=== PATIENT | female | born 1990 | race Two or more races ===

== ENCOUNTER 2018-05-16 02:50 | Emergency (ER) | payer OTHER ==
[~2018-05-16] VITALS: Ht 162.6 cm; Wt 111.1 kg
[2018-05-16] MEDS ORDERED: HYZAAR 50-12.51 EACH (03:11)
[2018-05-16] MEDS ORDERED: PEPCID40 MG PO (06:07)
[2018-05-16] MEDS ORDERED: PROTONIX40 MG PO (06:07)
== END 2018-05-16 06:17 | disposition home or self-care (01) ==
LOC: ER 02:50
DX: K29.70 Gastritis, unspecified, without bleeding (principal)

== ENCOUNTER 2019-04-18 23:11 | Inpatient (IN) | payer OTHER ==
[~2019-04-18] VITALS: Ht 162.6 cm; Wt 5.4 kg
[~2019-04-18 23:11] MED LIST: HYZAAR 50-12.51 EACH; PEPCID40 MG PO; PROTONIX40 MG PO
[2019-04-18] MEDS ORDERED: NASAL MIST126 ML (23:19)
--- NOTE | 2019-04-18 23:21 | NUR ---
SE RECIBE PTE EMBARAZADA, ALERTA Y ORIENTADA POR SHA ESFERAS. PTE DE DR. POPE, CON 5 SEMANAS DE EMBARAZO REFIERE SANGRADO VAGINAL, DOLOR PELVICO Y DE ESPALDA VAJA DESDE HACE 45 MINUTOS.
--- NOTE | 2019-04-18 23:48 | NUR ---
PACIENTE EVALUADA POR MD EN TURNO QUIEN COLOCA ORDEN MEDICA. SE ORIENTA PACIENTE Y FAMILIAR SOBRE TRATAMIENTO ORDENADO,REFIERE COMPRENDER. SE COLECTAN MUESTRAS DE LABORATORIOS,SE ROTULAN Y ENVIAN PARA ANALISIS. SE ADMINISTRA MEDICAMENTO LEANN ORDENADO BAJO MEDIDAS ASEPTICAS. PACIENTE NO PRESENTA REACCION ADVERSA. SE NOTIFICA ESTUDIO DE SONOGRAMA TRASVAGINAL A PERSONAL EN TURNO.
--- NOTE | 2019-04-19 01:57 | NUR ---
MR. PASCUAL ([facility]). LLEVA AL PACIENTE A REALIZAR SONOGRAFIA.
--- NOTE | 2019-04-19 04:02 | NUR ---
SE ORIENTA AL PACIENTE SOBRE MEDICAMENTO, MUESTRAS DE ELISEO Y CANALIZACION. PACIENTE REFIERE ENTENDER. MISS. JENNIFER PENDLETON, PROCEEDE A COLECTAR LAS MUESTRAS DE ELISEO Y CANALIZAR AL PACIENTE UTILIZANDO MEIDAS ASEPTICAS. VERIFICA AREA DE VENOPUNCION Y LA MISMA ESTA SACHIN DE EDEMA Y ERITEMA. MUESTRAS SON ENVIADAS AL LABORATORIO. Adiel KNOTT RN, ORIENTA AL PACIENTE SOBRE MEDICAMENTO. PACIENTE REFIERE ENTENDER. PROCEEDE A BRINDAR MEDICAMENTO UTILIZANDO MEDIDAS ASEPTICAS Y OBSERVA AL PACIENTE POR CAMBIOS EN CONDICION DE PAN.
--- NOTE | 2019-04-19 07:11 | NUR ---
PACIENTE ALERTA Y ORIENTADA EN NEREIDA SHA ESFERAS, PRESENTA BUEN PATRON RESPIRATORIO Y SACHIN DE DOLOR. CANALIZADA EN BRAZO LT PATENTE Y SACHIN DE S/S DE FLEBITIS E INFILTRACION, RECIBIENDO 150 ML/HR. PENDIENTE EVALUACION DE GINECOLOGO POR EMBARAZO ECTOPICO.
--- NOTE | 2019-04-19 09:07 | NUR ---
PTE CON ORDEN DE ADMISION A OR DLE DR POPE. SE ORIENTA A PTE SOBRE EL PROCESO DE ADMISION Y PROCEDIMIENTOS A REALIZAR, LO CUAL REFIERE ENTENDER SE ENTREGA VESTIMENTA PARA DEDRA DE OPERACIONES Y SE ORIENTA SOBRE JADA COLOCARSE LA MISMA, REFIERE ENTENDER. AL MOMENTO IV PATENTE Y SACHIN DE EDEMA EN BRAZO RT CON RINGER LACTATE @150ML/HR. PTE ES LLEVADA EN SHOLA POR PERSONAL DE TRANSPORTE JUNTO CON EL RECORD MEDICO.
== END 2019-04-21 11:22 | disposition home or self-care (01) | DRG 819 ==
LOC: ER 23:11 → O/R 04-19 08:33 → OB/GYN 04-19 08:33
PROVIDERS: ADMIT Obstetrics & Gynecology
PROC: 0UB50ZZ Excision of Right Fallopian Tube, Open Approach (ICD-10-PCS; principal; 2019-04-19 09:00)
DX: O00.101 Right tubal pregnancy without intrauterine pregnancy (principal)

== ENCOUNTER 2019-04-23 23:25 | Emergency (ER) | payer OTHER ==
[~2019-04-23] VITALS: Ht 162.6 cm; Wt 113.4 kg
[~2019-04-23 23:25] MED LIST changes: +NASAL MIST126 ML
== END 2019-04-24 16:24 | disposition home or self-care (01) ==
LOC: ER 23:25
DX: K29.70 Gastritis, unspecified, without bleeding (principal)

== ENCOUNTER 2019-12-11 08:58 | Emergency (ER) | payer OTHER ==
[~2019-12-11] VITALS: Ht 165.1 cm; Wt 111.1 kg
[2019-12-11] MEDS ORDERED: SINGULAIR10 MG (09:23)
[2019-12-11] MEDS ORDERED: AZELASTINE137 MCG/0. (09:24)
[2019-12-11] MEDS ORDERED: SYMBICORT 16010.2 GM (09:25)
[2019-12-11] MEDS ORDERED: NASAL MIST126 ML (09:25)
== END 2019-12-11 13:44 | disposition home or self-care (01) ==
LOC: ER 08:58
DX: U07.1 COVID-19 (principal); K80.80 Other cholelithiasis without obstruction

== ENCOUNTER 2023-09-03 10:55 | Emergency (ER) | payer OTHER ==
[~2023-09-03] VITALS: Ht 162.6 cm; Wt 96.6 kg
[~2023-09-03 10:55] MED LIST changes: +AZELASTINE137 MCG/0.; +SINGULAIR10 MG; +SYMBICORT 16010.2 GM
[2023-09-03 12:58] LABS: HEMATOCRIT 38.9 % (36.0-45.00); HEMOGLOBIN 13.2 g/dL (12.0-15.00); MEAN CELL VOLUME 84.2 fL (80.00-100.00); MEAN CORPUSCULAR HEMOGLOBIN 28.5 pg (27.00-32.0); MEAN CORPUSCULAR HGB CONC 33.8 g/dl (32.0-36.0); PLATELET COUNT 356 K/uL (150-450); RED BLOOD COUNT 4.63 M/uL (4.00-6.00); RED CELL DISTRIBUTION WIDTH 14.5 % (11.5-14.5)
[2023-09-03 14:06] LABS: CALCIUM 9.4 mg/dL (8.5-10.1); CREATININE SERUM 0.59 mg/dL (0.55-1.02); GFR 115.99; POTASSIUM 4.18 mEq/L (3.5-5.1)
[2023-09-03 14:21] LABS: URINE APPEARANCE Clear; URINE BILIRRUBIN Negative (NEGATIVE); URINE BLOOD Negative; URINE COLOR Yellow; URINE GLUCOSE Negative (NEGATIVE); URINE LEUKOCYTE Negative; URINE NITRATE Negative; URINE PROTEIN Negative (NEGATIVE); URINE UROBILINOGEN 0.2 E.U./dl
[2023-09-03 14:24] LABS: URINE BACTERIA 141.1 uL (0.0-1933); URINE EPITHELIAL CELLS 3.2 uL (0.0-38.8); URINE RBC 11.9 uL (0.0-20.8); URINE WBC 1.8 uL (0.0-23.2)
== END 2023-09-03 14:37 | disposition home or self-care (01) ==
LOC: ER 10:57
PROVIDERS: General Practice
DX: O20.9 Hemorrhage in early pregnancy, unspecified (principal); Z3A.08 8 weeks gestation of pregnancy

== ENCOUNTER → 2023-09-04 | Emergency (ER) | payer OTHER ==
[~2023-09-04] VITALS: Ht 162.6 cm; Wt 97.5 kg
== END | disposition left against medical advice (07) ==
LOC: ER 22:20
DX: Z53.21 Procedure and treatment not carried out due to patient leaving prior to being seen by health care provider (principal)